=== PATIENT | female | born 1980 | race Caucasian/White ===

== ENCOUNTER 2016-06-21 16:08 | Emergency (ER) | payer SELFPAY ==
[2016-06-21] MEDS ORDERED: HYDROCORTISONE 1% CREAM 30 GM TUBE TOP PRN (16:59)
[2016-06-21] MEDS ORDERED: PREDNISONE 20 MG TAB PO ONE (16:59)
[2016-06-21 17:01] VITALS: BP 148/83; PULSE 80; TEMP 97.8; BMI 29.1
--- NOTE | 2016-06-21 17:02 | EDPRACDOC ---
- General Information Stated Complaint: RASH BILATERAL HANDS Time Seen by Provider: 06/21/16 16:58 Home Medications: Home Medications Ketorolac Tromethamine [Toradol] 10 mg PO Q6H PRN #20 tab 09/24/15 Diphenhydramine HCl [Benadryl Allergy] 25 mg PO Q4-6H PRN #30 tablet 06/21/16 Prednisone [Deltasone, Orasone] 20 mg PO DAILY #20 tab 06/21/16 Allergies/Adverse Reactions: Allergies Allergy/AdvReac Type Severity Reaction Status Date / Time morphine Allergy Anaphylaxis Verified 09/24/15 16:31 * Penicillins Allergy Anaphylaxis Verified 09/24/15 16:31 * - History of Present Illness Onset: 1 weeks HPI: Pt states washed dishes at work with powder detergent and now has rash to backs of bilateral hands. Denies itching, red streaking, rash to other areas. Pt states she has to wear gloves at work and it seems to make it worse. Rash Location: Reports: Hands Quality: Reports: Painful, Red Known Exposure To: Reports: Chemical Relevant History of: Reports: None Irritability: None Pain Severity: Mild Associated Signs and Symptoms: Reports: None ED Past Medical History - History Reviewed Yes Nurses notes reviewed and agree except as marked - Patient Medical History Systemic History: Reports: Cancer (cervical) Surgical History: Reports: Other (appendectomy, radical hysterectomy, lithotripsy) - Social Medical History Smoking Status: Former smoker ETOH: Social Substance Abuse: None EDM Review of Systems - Review of Systems Constitutional: No Symptoms Reported. negative: Fever, Chills, Weakness, Fatigue, Loss of Appetite Throat: No Symptoms Reported. negative: Pain, Swelling Mouth: No Symptoms Reported. negative: Pain, Drooling Respiratory: No Symptoms Reported. negative: Cough, Brassy Cough, Barky Cough, Shortness of Breath, Wheezing, Hemoptysis Cardiovascular: No Symptoms Reported. negative: Chest Pain, Palpitations, Syncope, Edema, Orthopnea, PND, Skin Mottling, Cyanosis Gastrointestinal: No Symptoms Reported. negative: Pain, Constipation, Nausea, Vomiting, Diarrhea, Melena, Formula Intolerance Genitourinary: No Symptoms Reported. negative: Dysuria, Hematuria, Frequency, Discharge, Bleeding, Testicular Pain, Neurological: No Symptoms Reported. negative: Headache, Dizziness, Seizure, Numbness, Weakness, Speech Difficulty, Gait Difficulty Musculoskeletal: No Symptoms Reported. negative: Neck, Chestwall, Ribs, Back, Shoulder, Arm, Elbow, Forearm, Wrist, Hand, Pelvis, Hip, Femur, Knee, Leg, Ankle , Foot Integumentary: Rash Allergic/Immunologic: No Symptoms Reported. negative: Hives, Itching Hematologic: No Symptoms Reported. negative: Lymphadenopathy, Easy Bruising, Easy Bleeding Psychiatric: No Symptoms Reported. negative: Anxiety, Depression, Hallucinations, Insomnia, Suicidal - Physical Exam Constitutional: Alert Oriented to: Time, Person, Place Last recorded Vital Signs: Oxygen Pulse Oxygen Saturation O2 Device Oxygen Flow Rate Fraction of Inspired Oxygen ( FIO2) - HEENT Head: Normal ( normocephalic) - Respiratory/Cardiovascular Respiratory: Normal - CTA (BBS clear to auscultation without adventitious sounds ) Cardiovascular: Normal (RRR without murmur, gallop or rub) - Musculoskeletal Extremities: Normal (Normal tone, Pulses 2+ No cyanosis or edema, FROM) - Integumentary Skin: Rash (bilateral dorsal hands with patches or erythema with papules and abrasions. Areas is localized to back of hands and finger. Doesn't appear to be cellulitis or scabies) Lymphatics: Normal (no adenopathy) - Neurologic Memory Impaired: Normal Motor Function: Normal (Normal tone, Pulses 2+ No cyanosis or edema, FROM) Mood Description: Normal Perception: Normal - Differential Diagnosis Atopic dermatitis, Contact dermatitis Decision Time to Discharge: 16:59 - Departure Disposition: Home Condition: Good Final Diagnosis: Contact dermatitis Qualifiers: Contact dermatitis type: unspecified Contact dermatitis trigger: other chemical product Qualified Code(s): L25.3 - Unspecified contact dermatitis due to other chemical products Instructions: Contact Dermatitis (ED) Education/Counseling Given To: Patient Education/Counseling Given Regarding: Diagnosis, Treatment, Follow Up Referrals: None,No Provider [Primary Care Provider] - One Week Kervin Hoang II, MD [Staff Physician] - One Week Prescriptions: Diphenhydramine HCl [Benadryl Allergy] 25 mg PO Q4-6H PRN #30 tablet PRN Reason: Itching Prednisone [Deltasone, Orasone] 20 mg PO DAILY #20 tab Additional Instructions: Hydrocortisone cream to backs of hands bid. Use good hand lotion between applications to keep skin moist. Return for worse or different symptoms.
[2016-06-21] MEDS ORDERED: HYDROCORTISONE 1% CREAM 30 GM TUBE TOP SCH (17:11)
== END 2016-06-21 17:19 | disposition home or self-care (01) ==
LOC: EDMC 16:08
DX: L25.3 Unspecified contact dermatitis due to other chemical products (principal)
CPT/HCPCS: 99283; J3490